=== PATIENT | male | born 1975 | race Two or more races ===

== ENCOUNTER 2020-09-23 22:27 | Emergency (ER) | payer SELFPAY ==
[~2020-09-23] VITALS: Ht 177.8 cm; Wt 78.0 kg
[2020-09-24 00:02] VITALS: BP 166/75
== END 2020-09-24 01:51 | disposition left against medical advice (07) ==
LOC: ER 22:27
DX: Z53.21 Procedure and treatment not carried out due to patient leaving prior to being seen by health care provider (principal)